=== PATIENT | male | born 1970 | race Caucasian/White ===

== ENCOUNTER 2021-08-07 12:44 | Outpatient (CLI) | payer OTHER ==
[2021-08-07] MEDS ORDERED: GADOBUTROL 10 MMOL/10 ML VIAL ONE (13:09)
[2021-08-07] MEDS ORDERED: GADOBUTROL 10 MMOL/10 ML VIAL IVP ONE (14:27)
--- NOTE | 2021-08-07 16:59 | MRI Report ---
PROCEDURE: Brain W/WO INDICATIONS: PARATHESIA CONTRAST: IV CONTRAST: Gadavist ml: 9 TECHNIQUE: Noncontrast axial T1 spin echo, axial T2 fast spin echo, sagittal and axial FLAIR, coronal T2 fast sp in echo, axial gradient echo, axial diffusion and ADC through the brain. After the administration of contrast, axial and coronal T1 spin echo with fat saturation through the brain. COMPARISON: None. FINDINGS: Image quality: Excellent. CSF spaces: Basal cisterns are patent. No extra-axial fluid collections. Ventricles are normal in size and shape. Brain: No midline shift. No intracranial bleeds or masses. No abnormal intracranial enhancement. There is mild cerebral volume loss for age. There is minimal periventricular white matter chronic sm all vessel ischemic change. The brainstem appears normal. Diffusion-weighted images demonstrate no acute ischemic insults. No chronic ischemic insults. Normal intravascular flow voids are present. Skull and face: Calvarial marrow is normal in signal. Orbits appear normal. Sinuses: Mucous retention cyst sversus polyps noted in the right maxillary sinus and the left sphenoi d sinus. The mastoids appear clear. IMPRESSION: 1. No acute intracranial disease process. 2. No abnormal intracranial mass or mass effect. 3. No suspicious postcontrast enhancement. 4. No areas of acute or chronic infarction. Reviewed by: Radha Nguyen MD, PhD on 08/07/2021 4:58 PM PDT Approved by: Radha Nguyen MD, PhD on 08/07/2021 4:58 PM PDT Station ID: [id number]
== END 2021-08-07 12:45 | disposition home or self-care (01) ==
LOC: DI 12:44
PROVIDERS: ATTEND Student in an Organized Health Care Education/Training Program
DX: R20.2 Paresthesia of skin (principal)
CPT/HCPCS: 70553; A9585

== ENCOUNTER 2021-08-18 18:48 | Outpatient (CLI) | payer OTHER ==
--- NOTE | 2021-08-18 21:37 | Ultrasound Report ---
PROCEDURE: Duplex Ext Veins Bilateral INDICATIONS: Paresthesias. Bilateral leg pain TECHNIQUE: Real-time imaging, as well as color and pulse Doppler interrogation, were performed of the deep veins of both legs from the inguinal ligament to the popliteal fossa. COMPARISON: None FINDINGS: The deep veins are normally compressible, and free of intraluminal thrombus. Color and pu lse Doppler demonstrate normal phasic intravascular flow. There is normal augmentation response to d istal compression maneuver. IMPRESSION: Negative for deep venous thrombosis of the bilateral lower extremities. Reviewed by: Corey Mota MD on 08/18/2021 9:36 PM PDT Approved by: Corey Mota MD on 08/18/2021 9:36 PM PDT Station ID: [id number]
== END 2021-08-18 18:49 | disposition home or self-care (01) ==
LOC: DI 18:48
PROVIDERS: ATTEND Student in an Organized Health Care Education/Training Program
DX: R20.2 Paresthesia of skin (principal)
CPT/HCPCS: 93970

== ENCOUNTER 2022-12-16 16:19 | Emergency (ER) | payer OTHER ==
[2022-12-16 17:30] LABS: BASOPHILS # (AUTO) 0.1 10^3/uL (0.0-0.1); BASOPHILS % (AUTO) 0.9 %; EOSINOPHILS # (AUTO) 0.1 10^3/uL (0.0-0.7); HCT - HEMATOCRIT 48.6 % (42.0-52.0); LYMPHOCYTES # (AUTO) 1.6 10^3/uL (1.5-3.5); LYMPHOCYTES % (AUTO) 11.7 %; MEAN CORPUSCULAR HEMOGLOBIN 31.9 pg (27.0-31.0); MEAN CORPUSCULAR VOLUME 91.2 fL (80.0-94.0); MEAN PLATELET VOLUME 10.2 fL (7.4-11.4); MONOCYTES # (AUTO) 0.8 10^3/uL (0.0-1.0); NEUTROPHILS # (AUTO) 10.6 10^3/uL (1.5-6.6); NEUTROPHILS % (AUTO) 79.9 %; PLT - PLATELET COUNT 338 10^3/uL (130-450); RED BLOOD COUNT 5.33 10^6/uL (4.70-6.10); RED CELL DISTRIBUTION WIDTH 12.2 % (12.0-15.0); WHITE BLOOD COUNT 13.2 x10^3/uL (4.8-10.8)
--- NOTE | 2022-12-16 17:40 | ED Physician Documentation ---
PD HPI ABD PAIN - Stated complaint Stated Complaint: ABD PX - Chief complaint Chief Complaint: Abd Pain - History obtained from History obtained from: Patient - Additional information Additional information: 52-year-old gentleman with history of renal colic x2 who developed severe left lower abdominal pain at 2 PM today associate with nausea and vomiting. No urinary or bowel complaints. States it does not feel like prior renal colic. PD PAST MEDICAL HISTORY - Past Surgical History General: Appendectomy - Present Medications Home Medications: Ambulatory Orders Medication Instructions Recorded Confirmed Hydrocodone/Acetaminophen 1 - 2 each PO Q6H PRN #15 tablet 06/26/14 [Hydrocodon-Acetaminophen 5-325] Levofloxacin [Levaquin] 500 mg PO DAILY #7 tablet 06/26/14 Ondansetron Odt [Zofran] 4 mg TL Q6H PRN #10 tablet 06/26/14 Tamsulosin [Flomax] 0.4 mg PO DAILY #7 capsule 06/26/14 Ibuprofen [Motrin] 600 mg PO Q6H PRN #30 tab 12/16/22 Ondansetron Odt [Zofran] 4 mg TL Q6H PRN #10 tablet 12/16/22 Oxycodone HCl/Acetaminophen 1 - 2 each PO Q6H PRN #14 tablet 12/16/22 [Percocet 5-325 mg Tablet] Tamsulosin [Flomax] 0.4 mg PO DAILY #14 cap 12/16/22 - Allergies Allergies/Adverse Reactions: Allergies Allergy/AdvReac Type Severity Reaction Status Date / Time Penicillins Allergy Hives Verified 12/16/22 16:56 - Social History Does the pt smoke?: No Smoking Status: Never smoker Does the pt drink ETOH?: No Does the pt have substance abuse?: No PD ED PE NORMAL - Vitals Vital signs reviewed: Yes - General General: Alert and oriented X 3, Other (He appears uncomfortable due to pain.) - Abdomen Abdomen: Normal bowel sounds, Soft, Other (Minimal left lower quadrant tenderness) - Back Back: No CVA TTP, No spinal TTP - Derm Derm: Warm and dry - Neuro Neuro: Alert and oriented X 3, Normal speech Results - Vitals Vitals: Vital Signs - 24 hr 12/16/22 12/16/22 16:51 19:30 Temperature 36.5 C Heart Rate 104 H 70 Respiratory 20 16 Rate Blood Pressure 154/117 H 127/84 H O2 Saturation 99 99 Oxygen O2 Source Room air - Labs Labs: Laboratory Tests 12/16/22 12/16/22 17:17 17:17 WBC 13.2 H RBC 5.33 Hgb 17.0 Hct 48.6 MCV 91.2 MCH 31.9 H MCHC 35.0 RDW 12.2 Plt Count 338 MPV 10.2 Neut # (Auto) 10.6 H Lymph # (Auto) 1.6 [place] # (Auto) 0.8 Eos # (Auto) 0.1 Baso # (Auto) 0.1 Absolute Nucleated RBC 0.00 Nucleated RBC % 0.0 Sodium 139 Potassium 3.7 Chloride 102 Carbon Dioxide 26 Anion Gap 11.0 BUN 15 Creatinine 1.2 Estimated GFR (MDRD) 63 L Glucose 145 H Calcium 9.4 Total Bilirubin 1.2 H AST 21 ALT 31 Alkaline Phosphatase 52 Total Protein 7.2 Albumin 4.8 Globulin 2.4 Albumin/Globulin Ratio 2.0 Lipase 15 - Rads (name of study) CT abdomen and pelvis Relevant Findings:: Final report received, EMP independent interpretation of test PD Medical Decision Making - ED course ED course: 52-year-old gentleman with acute left lower quadrant pain most consistent to me with renal colic proven on CT which showed a 4 mm left UVJ stone with hydronephrosis. After the administration of 1 mg IV Dilaudid, 15 mg IV Toradol, and 4 mg of IV Zofran he was all but pain-free and comfortable. CBC showing leukocytosis at 13,000, CMP showing mild hyperglycemia at 140, otherwise unremarkable. He was unable to urinate here, but given the lack of specific urinary symptoms and the acuity of his pain I sincerely doubt an infection. Departure - Departure Disposition: 01 Home, Self Care Clinical Impression: Renal colic Condition: Good Record reviewed to determine appropriate education?: Yes Instructions: ED Stone Renal W Colic Follow-Up: Suhas Sabillon MD [Provider Admit Priv/Credential] - Prescriptions: Tamsulosin [Flomax] 0.4 mg PO DAILY #14 cap Ibuprofen [Motrin] 600 mg PO Q6H PRN #30 tab PRN Reason: Pain Oxycodone HCl/Acetaminophen [Percocet 5-325 mg Tablet] 1 - 2 each PO Q6H PRN #14 tablet PRN Reason: pain Ondansetron Odt [Zofran] 4 mg TL Q6H PRN #10 tablet PRN Reason: Nausea / Vomiting Comments: You were seen today for a small kidney stone near the bladder on the left side. I sent prescriptions for Flomax, pain medication and nausea medication to the [facility] in [place]. Return for new or worsening symptoms. If not improving over the next few days you can follow-up with the urologist, the numbers on this form. I am prescribing a short course of narcotic pain medication for you. These are potentially dangerous and addictive medications that should be used carefully. These medications may constipate you. Take an [id number] stool softener (docusate) twice daily with plenty of water while taking these medications. If you go 24 hours without a bowel movement, take [id number] miralax, per package instructions. Do not drink or drive while taking these medications. If you received narcotic or sedating medications while in the emergency department, do not drive for 24 hours. Store this medication in a safe, secure place and out of reach of children. It is a violation of federal law to give or sell this medication to another person or to use in a manner other than prescribed. The ED will not refill narcotic prescriptions, including prescriptions lost or stolen. To dispose of unwanted medications: 1. [facility] a [facility] box for medication in pill form only (no liquids) 8:00 am to 4:30 p.m. Saturday-Saturday in the lobby of the [facility], [address] [place] [address]. Empty pills into ziplock bag before disposal. Call [phone] for information. 2.[employer] [facility] is a free service available to all [facility] residents. Go to [email or web address] Note that many narcotic pain relievers also contain Tylenol/acetaminophen. Please ensure that your total dose of acetaminophen from all sources does not exceed 3 g (3000 mg) per day. Forms: PCP List
[2022-12-16 17:52] LABS: ALBUMIN 4.8 g/dL (3.2-5.5); BILIRUBIN,TOTAL 1.2 mg/dL (0.2-1.0); CALCIUM 9.4 mg/dL (8.5-10.3); CREATININE 1.2 mg/dL (0.6-1.3); POTASSIUM 3.7 mmol/L (3.5-4.5); TOTAL PROTEIN 7.2 g/dL (6.4-8.9)
[2022-12-16] MEDS: ONDANSETRON 4 MG/2 ML VIAL IVP STA (17:58)
[2022-12-16] MEDS: HYDROmorphone 1 MG/ML CARPUJECT IVP STA ×2 (17:59→19:51)
[2022-12-16] MEDS: KETOROLAC 15 MG/ML VIAL IVP STA (17:59)
[2022-12-16] MEDS: SODIUM CHLORIDE 0.9% 1,000 ML IV STA ×2 (18:33→19:56)
[2022-12-16] MEDS: iohexoL-300 100 ML VIAL IVP ONE (20:25)
[2022-12-16] MEDS: TAMSULOSIN 0.4 MG CAPSULE PO STA (21:03)
[2022-12-16] MEDS: ONDANSETRON ODT 4 MG Prepack 2 TL STA (21:04)
[2022-12-16] MEDS: oxyCODONE/ACET 5/325 Prepack 4 PO STA (21:04)
--- NOTE | 2022-12-16 21:16 | CT Report ---
PROCEDURE: ABDOMEN/PELVIS W INDICATIONS: IV only, LLQ pain CONTRAST: 100ml omni 300 TECHNIQUE: After the administration of IV contrast, 5 mm thick sections acquired from the diaphragms to the symp hysis. 5 mm thick coronal and sagittal reformats were acquired. For radiation dose reduction, the f ollowing was used: automated exposure control, adjustment of mA and/or kV according to patient size. COMPARISON: CT of abdomen and pelvis, 06/26/2014. FINDINGS: Image quality: Excellent. Lung bases and heart: [Basilar scars and atelectasis. Small hiatal hernia. Liver: Normal size. Mild hepatic steatosis No solid mass. Gallbladder and biliary tree: Normal gallbladder. No biliary dilation. Spleen: No splenomegaly. Pancreas: No pancreatic ductal dilation. Adrenals: No adrenal nodule. Kidneys and ureters: Mild left hydronephrosis and perinephric stranding. There is a 4 mm of fractured stone at the left UVJ. No right urinary stone or hydronephrosis. No renal cystic lesion which requir es follow up. No solid mass. Bowel and peritoneum: No bowel distension. No pathologic free fluid. Lymph nodes: No central or retroperitoneal adenopathy. Vessels: No infrarenal aortic aneurysm. PELVIS Reproductive organs: Unremarkable. Bladder: No abnormal wall thickening, accounting for underdistension. Pelvic lymph nodes: No pelvic adenopathy by size criteria. Bones: No aggressive osseous abnormality. Other: No significant ventral or inguinal hernia. IMPRESSION: 1. A 4 mm nonobstructive stone in the left UVJ causing mild left hydronephrosis. 2. Mild hepatic steatosis. 3. Small hiatal hernia. Reviewed by: Tariq Scott MD on 12/16/2022 9:15 PM PDT Approved by: Tariq Scott MD on 12/16/2022 9:15 PM PDT Station ID: [id number]
[2022-12-16 21:30] VITALS: BP 127/91; O2SAT 97
== END 2022-12-16 21:31 | disposition home or self-care (01) ==
LOC: ED 16:19
DX: N13.2 Hydronephrosis with renal and ureteral calculous obstruction (principal)
CPT/HCPCS: 36415; 80053; 83690; 85025; 96374; 96375; 99285